=== PATIENT | male | born 1980 | race Hispanic/Latino ===

== ENCOUNTER 2022-09-28 01:08 | Emergency (ER) | payer SELFPAY ==
[~2022-09-28] VITALS: Ht 165.1 cm; Wt 111.1 kg
[2022-09-28] MEDS ORDERED: ONDANSETRON HCL INJ 2MG/ML 2ML 2 MG/ML VIAL IV STA (01:16)
[2022-09-28] MEDS ORDERED: KETOROLAC TROMETHAMINE 30 MG/ML VIAL IV STA (01:18)
[2022-09-28 01:28] LABS: BASOPHILS % 0.2 % (0.0-1.0); EOSINOPHILS # (AUTO) 0.3 (0.0-0.4); EOSINOPHILS % 2.6 % (0.0-6.0); HEMATOCRIT 45.5 % (38.2-49.6); HEMOGLOBIN 15.4 g/dL (14.0-18.0); LYMPHOCYTES # (AUTO) 3.4 (1.0-3.2); LYMPHOCYTES % 31.9 % (18.0-39.1); MEAN CORPUSCULAR HEMOGLOBIN 31.1 pg (28-32); MEAN CORPUSCULAR HGB CONC 33.8 g/dL (31-35); MEAN CORPUSCULAR VOLUME 91.9 fL (81-99); MONOCYTES # (AUTO) 0.9 (0.2-0.8); NEUTROPHILS # (AUTO) 6.1 (2.1-6.9); PLATELET COUNT 335 x10e3/uL (140-360); RED BLOOD COUNT 4.95 x10e6/uL (4.3-5.7); RED CELL DISTRIBUTION WIDTH 11.9 % (11.7-14.4)
[2022-09-28] MEDS ORDERED: SODIUM CHLORIDE 0.9% 1000ML 1,000 ML IV ONE (01:30)
[2022-09-28] MEDS ORDERED: Morphine 4mg INJECTION 4 MG/ML INJ IV ONE (01:30)
[2022-09-28] MEDS ORDERED: ONDANSETRON HCL INJ 2MG/ML 2ML 2 MG/ML VIAL ONE (01:33)
[2022-09-28] MEDS ORDERED: Morphine 4mg INJECTION 4 MG/ML INJ ONE (01:33)
[2022-09-28] MEDS ORDERED: KETOROLAC TROMETHAMINE 30 MG/ML VIAL ONE (01:40)
[2022-09-28 01:46] LABS: CLARITY,URINE CLOUDY (CLEAR); COLOR,URINE YELLOW (YELLOW); KETONES,URINE TRACE (NEGATIVE); LEUKOCYTE ESTERASE ,URINE NEGATIVE (NEGATIVE); NITRITE,URINE NEGATIVE (NEGATIVE); PROTEIN,URINE DIPSTICK TRACE (NEGATIVE)
[2022-09-28 01:48] LABS: ANION GAP 17.6 mmol/L (8-16); CALCIUM 9.1 mg/dL (8.4-10.2); CREATININE, SERUM 1.02 mg/dL (0.72-1.25); POTASSIUM 3.6 mmol/L (3.5-5.1)
[2022-09-28 01:51] LABS: INR 1.05; PARTIAL THROMBOPLASTIN TIME 27.9 seconds (23.8-35.5); PROTHROMBIN TIME 14.6 seconds (11.9-14.5)
[2022-09-28 01:52] LABS: BACTERIA,URINE FEW /HPF; EPITHELIAL CELLS,URINE RARE /LPF; RBC,URINE 21-50 /HPF (0-5); WBC,URINE (MAN) 0-5 /HPF (0-5)
[2022-09-28] MEDS ORDERED: HYDROCODON-ACE1 EA11 PO (05:05)
[2022-09-28] MEDS ORDERED: FLOMAX0.4 MG PO (05:05)
[2022-09-28] MEDS ORDERED: ONDANSETRON ODT4 MG PO (05:05)
[2022-09-28 05:28] VITALS: BP 129/88
== END 2022-09-28 05:17 | disposition home or self-care (01) ==
LOC: ER 01:30
DX: N20.0 Calculus of kidney (principal); N50.812 Left testicular pain; I10 Essential (primary) hypertension
CPT/HCPCS: 36415; 74176; 76870; 80053; 81001; 85025; 85610; 85730; 93976; 99284; J1885; J2270; J2405; J7030